=== PATIENT | female | born 1960 | race African-American/Black ===

== ENCOUNTER → 2017-07-17 | Outpatient (CLI) | payer OTHER | END | disposition home or self-care (01) | LOC: KCIC US 14:00 | DX: R10.2 Pelvic and perineal pain (principal); Z90.710 Acquired absence of both cervix and uterus | CPT/HCPCS: 76830; 76856 ==

== ENCOUNTER → 2017-08-25 | Outpatient (CLI) | payer OTHER | END | disposition home or self-care (01) | LOC: KCIC US 11:57 | DX: E04.2 Nontoxic multinodular goiter (principal) | CPT/HCPCS: 76536 ==

== ENCOUNTER 2018-05-27 10:17 | Emergency (ER) | payer OTHER ==
[~2018-05-27] VITALS: Ht 157.5 cm; Wt 83.0 kg
[2018-05-27 10:48] LABS: BASO % 1 % (0-3); EOS % 1 % (0-3); HEMATOCRIT 36.2 % (36.0-47.0); HEMOGLOBIN 11.9 g/dL (12.0-15.5); LYMPH # 1.3 x10^3/uL (1.0-4.8); LYMPH % 29 % (24-48); MEAN CORPUSCULAR HEMOGLOBIN 32 pg (25-35); MEAN CORPUSCULAR HGB CONC 33 g/dL (31-37); MEAN CORPUSCULAR VOLUME 97 fL (79-100); MONO # 0.3 x10^3/uL (0.0-1.1); MONO % 7 % (0-9); NEUT # 2.9 x10^3uL (1.8-7.7); NEUT % 62 % (31-73); PLATELET COUNT 128 x10^3/uL (140-400); RED BLOOD COUNT 3.75 x10^6/uL (3.50-5.40); RED CELL DISTRIBUTION WIDTH 14.5 % (11.5-14.5); WHITE BLOOD COUNT 4.7 x10^3/uL (4.0-11.0)
--- NOTE | 2018-05-27 10:56 | PHYS DOC ---
Past Medical History Past Medical History: Hypertension Adult General Chief Complaint Chief Complaint: CHEST PAIN HPI HPI Patient is a 57-year-old female who presents to the emergency department for evaluation. She has a history of untreated hypertension, recently established health insurance and went to see a nurse practitioner today for primary care. The patient was complaining of chest pain on and off for the past month, which has been waxing and waning. the chest pain is described as a sharp pain in the center of her chest without radiation, but she is also having right-sided "rib" pain, without any injury. She has not had any diaphoresis, definite pleuritic pain, nausea, vomiting. He does report some shortness of breath. She also reports some right lower abdominal discomfort for the past week and a half. She has not had any urinary symptoms. Her pain is not necessarily worsened by exertion. There are no alleviating or exacerbating factors to the patient's symptoms otherwise. Review of Systems Review of Systems Constitutional: Denies fever or chills [] Eyes: Denies change in visual acuity, redness, or eye pain [] HENT: Denies nasal congestion or sore throat [] Respiratory: Denies cough or pleuritic pain[] Cardiovascular: No additional information not addressed in HPI [] GI: Denies nausea, vomiting, bloody stools or diarrhea [] : Denies dysuria or hematuria [] Musculoskeletal: Denies back pain or joint pain [] Integument: Denies rash or skin lesions [] Neurologic: Denies headache, focal weakness or sensory changes [] Endocrine: Denies polyuria or polydipsia [] All other systems were reviewed and found to be within normal limits, except as documented in this note. Current Medications Current Medications Current Medications Medications (Trade) Dose Ordered Sig/El Start Time Stop Time Status Last Admin Dose Admin Aspirin (Children'S Aspirin) 324 mg 1X ONCE 05/27/18 10:45 05/27/18 10:58 DC 05/27/18 11:24 324 MG Info (CONTRAST GIVEN -- Rx MONITORING) 1 each PRN DAILY PRN 05/27/18 11:30 05/29/18 11:29 Iohexol (Omnipaque 350 Mg/ml) 100 ml 1X ONCE 05/27/18 11:30 05/27/18 11:31 DC 05/27/18 11:42 100 ML Allergies Allergies Allergies Coded Allergies Type Severity Reaction Last Updated Verified Sulfa (Sulfonamide Antibiotics) Allergy Intermediate 05/27/18 Yes codeine Allergy Intermediate 05/27/18 Yes Physical Exam Physical Exam PHYSICAL EXAM: CONSTITUTIONAL: Well developed, well nourished HEAD: normocephalic, atraumatic EENT: PERRL, EOMI. Conjunctivae normal color, sclerae non-icteric; moist mucous membranes. NECK: Supple, non-tender; no meningismus. LUNGS: Lungs CTA, breathing even and unlabored. Normal air movement. HEART: Regular rate and rhythm, no murmur CHEST: No deformity; there is tenderness to palpation of the anterior chest wall which reproduces the patient's chest pain. ABDOMEN: The abdomen is soft, there is focal RLQ TTP, without rebound or guarding, the remainder of the abdomen is soft and non-tender, normal bowel sounds are present, no masses or bruits. EXTREM: Normal ROM; no deformity, no calf tenderness. Normal pulses palpable in all extremities. There is no pedal edema. SKIN: No rash; no diaphoresis NEURO: Alert; normal speech and cognition; CN's grossly intact; strength grossly intact without focal deficit. BACK: No CVA TTP. Current Patient Data Vital Signs Vital Signs Date Time Temp Pulse Resp B/P (MAP) Pulse Ox O2 Delivery O2 Flow Rate FiO2 05/27/18 10:22 97.9 67 16 182/96 (124) 99 Room Air 97.9 Lab Values Laboratory Tests Test 05/27/18 10:38 05/27/18 12:03 White Blood Count 4.7 x10^3/uL (4.0-11.0) Red Blood Count 3.75 x10^6/uL (3.50-5.40) Hemoglobin 11.9 g/dL (12.0-15.5) L Hematocrit 36.2 % (36.0-47.0) Mean Corpuscular Volume 97 fL (79-100) Mean Corpuscular Hemoglobin 32 pg (25-35) Mean Corpuscular Hemoglobin Concent 33 g/dL (31-37) Red Cell Distribution Width 14.5 % (11.5-14.5) Platelet Count 128 x10^3/uL (140-400) L Neutrophils (%) (Auto) 62 % (31-73) Lymphocytes (%) (Auto) 29 % (24-48) Monocytes (%) (Auto) 7 % (0-9) Eosinophils (%) (Auto) 1 % (0-3) Basophils (%) (Auto) 1 % (0-3) Neutrophils # (Auto) 2.9 x10^3uL (1.8-7.7) Lymphocytes # (Auto) 1.3 x10^3/uL (1.0-4.8) Monocytes # (Auto) 0.3 x10^3/uL (0.0-1.1) Eosinophils # (Auto) 0.0 x10^3/uL (0.0-0.7) Basophils # (Auto) 0.0 x10^3/uL (0.0-0.2) D-Dimer ([place]) 1.28 ug/mlFEU (0.00-0.50) H Sodium Level 143 mmol/L (136-145) Potassium Level 3.9 mmol/L (3.5-5.1) Chloride Level 106 mmol/L (98-107) Carbon Dioxide Level 29 mmol/L (21-32) Anion Gap 8 (6-14) Blood Urea Nitrogen 10 mg/dL (7-20) Creatinine 0.7 mg/dL (0.6-1.0) Estimated GFR (Cockcroft-Gault) 104.7 BUN/Creatinine Ratio 14 (6-20) Glucose Level 86 mg/dL (70-99) Calcium Level 9.2 mg/dL (8.5-10.1) Magnesium Level 2.0 mg/dL (1.8-2.4) Total Bilirubin 0.8 mg/dL (0.2-1.0) Aspartate Amino Transferase (AST) 16 U/L (15-37) Alanine Aminotransferase (ALT) 13 U/L (14-59) L Alkaline Phosphatase 124 U/L (46-116) H Creatine Kinase 84 U/L (26-192) Creatine Kinase MB (Mass) < 0.5 ng/mL (0.0-3.6) Creatine Kinase MB Relative Index % (0-4) Troponin I Quantitative < 0.017 ng/mL (0.000-0.055) [id number]-Zzm-[id number]-Type Natriuretic Peptide 136 pg/mL (0-124) H Total Protein 7.8 g/dL (6.4-8.2) Albumin 3.4 g/dL (3.4-5.0) Albumin/Globulin Ratio 0.8 (1.0-1.7) L Lipase 302 U/L (73-393) Urine Collection Type Unknown Urine Color Yellow Urine Clarity Clear Urine pH 6.0 Urine Specific [place] >=1.030 Urine Protein Negative mg/dL (NEG-TRACE) Urine Glucose (UA) Negative mg/dL (NEG) Urine Ketones (Stick) Negative mg/dL (NEG) Urine Blood Negative (NEG) Urine Nitrite Negative (NEG) Urine Bilirubin Negative (NEG) Urine Urobilinogen Dipstick 0.2 mg/dL (0.2 mg/dL) Urine Leukocyte Esterase Negative (NEG) Urine RBC 0 /HPF (0-2) Urine WBC 0 /HPF (0-4) Urine Squamous Epithelial Cells Mod /LPF Urine Bacteria 0 /HPF (0-FEW) Urine Hyaline Casts Few /HPF Urine Mucus Marked /LPF Laboratory Tests 05/27/18 10:38 Laboratory Tests 05/27/18 10:38 EKG EKG [Normal sinus rhythm with a normal rate, normal axis, normal intervals, there are no acute ischemic ST/T changes.] Radiology/Procedures Radiology/Procedures PROCEDURE: PORTABLE CHEST 1V EXAM: Chest, single view. HISTORY: Pain COMPARISON: 05/08/2016. FINDINGS: A frontal view of the chest is obtained. There is no infiltrate, pleural effusion or pneumothorax. There is a prominent cardiac silhouette likely due to portable technique. IMPRESSION: No acute pulmonary finding. [PROCEDURE: CT ANGIOGRAPHY CHEST CTA of the chest with contrast, 05/27/2018: HISTORY: Chest pain, right lower quadrant abdominal pain Multidetector CT imaging was performed following an IV bolus injection of iodinated contrast material. Multiplanar reconstructions were produced including coronal and sagittal MIP images. No filling defects are seen in the central pulmonary arteries to suggest pulmonary emboli. The thoracic aorta is of normal caliber. There is a pulsation type artifact related to the ascending aorta. No mediastinal or hilar adenopathy is seen. There is minimal dependent atelectasis and/or scarring in the lower lobes. No significant pulmonary consolidation is seen. A tiny 3-4 mm nodule is noted in the left upper lobe on axial image #40 of series #3. There is no evidence of pleural fluid. IMPRESSION: 1. No CT evidence of central pulmonary emboli. 2. Tiny left upper lobe pulmonary nodule. ] PROCEDURE: CT ABD PELV W/ IV CONTRST ONLY CT of the abdomen and pelvis with contrast, 05/27/2018: HISTORY: Right lower quadrant abdominal pain Multidetector CT imaging was performed following an IV bolus injection of iodinated contrast material. No oral contrast material was administered for this exam. Comparison is made to a study from 02/01/2014. There is a 3 cm cyst in the lateral aspect of the right lobe of the liver. The gallbladder is surgically absent. Mild prominence of the central intrahepatic bile ducts is probably secondary to the postcholecystectomy state. No pancreatic abnormality is seen. The spleen is of normal size. No renal or adrenal abnormality is detected. The abdominal aorta is of normal caliber. No abdominal or pelvic adenopathy is seen. Numerous lower pelvic calcifications are compatible with phleboliths. The bowel loops are not dilated. A portion of the appendix is visualized and it is unremarkable. No free fluid or free air is evident in the abdomen or pelvis. There is moderate bilateral facet joint arthropathy at L4-5. IMPRESSION: No acute abdominal or pelvic abnormality is detected. Course & Med Decision Making Course & Med Decision Making Pertinent Labs and Imaging studies reviewed. (See chart for details) 12:35 PM: Patient's condition remained stable. Clinical suspicion for acute coronary syndrome is very low given the long duration of symptoms, reproducible nature of her pain, and HEART score is a 1. I discussed importance of close follow-up with her PCP and return precautions, discussed the use of heat and NSAIDs for likely musculoskeletal pain, and will initiate antihypertensive therapy. Dragon Disclaimer Dragon Disclaimer This electronic medical record was generated, in whole or in part, using a voice recognition dictation system. Departure Departure Impression: Primary Impression: Atypical chest pain Additional Impressions: Abdominal pain Hypertension Disposition: 01 HOME, SELF-CARE Condition: STABLE Referrals: SYLVIA COOPER [employer] [facility]ST (PCP) Patient Instructions: Abdominal Pain, Chest Pain (Nonspecific), Chest Wall Pain , Hypertension Additional Instructions: Ibuprofen 400-600 mg every 6 hours may help improve your symptoms. Applying a heating pad to the affected area may help improve your symptoms. Scripts Lisinopril/Hydrochlorothiazide (LISINOPRIL-HCTZ 10-12.5 MG TAB) 1 Each Tablet 1 TAB PO DAILY, #30 TAB 0 Refills Prov: KAYLI GOOD MD 05/27/18 Problem Qualifiers KAYLI GOOD MD May 27, 2018 10:56
[2018-05-27 10:58] LABS: CALCIUM 9.2 mg/dL (8.5-10.1); CREATININE 0.7 mg/dL (0.6-1.0); GFR 104.7; POTASSIUM 3.9 mmol/L (3.5-5.1)
[2018-05-27 11:05] LABS: ALBUMIN 3.4 g/dL (3.4-5.0); ALBUMIN/GLOBULIN RATIO 0.8 (1.0-1.7); TOTAL BILIRUBIN 0.8 mg/dL (0.2-1.0); TOTAL PROTEIN 7.8 g/dL (6.4-8.2)
[2018-05-27 11:12] LABS: CREATINE KINASE 84 U/L (26-192)
[2018-05-27] MEDS: ASPIRIN CHEWABLE 81 MG TABLET. PO ONE (11:24)
[2018-05-27] MEDS ORDERED: CONTRAST GIVEN. MC PRN (11:30)
--- NOTE | 2018-05-27 11:34 | RAD ---
EXAM: Chest, single view. HISTORY: Pain COMPARISON: 05/08/2016. FINDINGS: A frontal view of the chest is obtained. There is no infiltrate, pleural effusion or pneumothorax. There is a prominent cardiac silhouette likely due to portable technique. IMPRESSION: No acute pulmonary finding. Electronically signed by: Lupe Santos MD (05/27/2018 11:31 AM) [id number]
[2018-05-27] MEDS: IOHEXOL 350 MG/ML 100 ML VIAL. IV ONE (11:42)
[2018-05-27 12:11] LABS: BILIRUBIN,URINE NEGATIVE (NEG); CLARITY,URINE CLEAR; COLOR,URINE YELLOW; NITRITE,URINE NEGATIVE (NEG); PROTEIN,URINE NEGATIVE (NEG-TRACE); UROBILINOGEN,URINE 0.2 mg/dL (0.2 mg/dL)
--- NOTE | 2018-05-27 12:18 | RAD ---
CTA of the chest with contrast, 05/27/2018: HISTORY: Chest pain, right lower quadrant abdominal pain Multidetector CT imaging was performed following an IV bolus injection of iodinated contrast material. Multiplanar reconstructions were produced including coronal and sagittal MIP images. No filling defects are seen in the central pulmonary arteries to suggest pulmonary emboli. The thoracic aorta is of normal caliber. There is a pulsation type artifact related to the ascending aorta. No mediastinal or hilar adenopathy is seen. There is minimal dependent atelectasis and/or scarring in the lower lobes. No significant pulmonary consolidation is seen. A tiny 3-4 mm nodule is noted in the left upper lobe on axial image #40 of series #3. There is no evidence of pleural fluid. IMPRESSION: 1. No CT evidence of central pulmonary emboli. 2. Tiny left upper lobe pulmonary nodule. PQRS Compliance Statement: One or more of the following individualized dose reduction techniques were utilized for this examination: 1. Automated exposure control 2. Adjustment of the mA and/or kV according to patient size 3. Use of iterative reconstruction technique Electronically signed by: Marcos Phoenix MD (05/27/2018 12:15 PM) [facility]
[2018-05-27 12:19] LABS: BACTERIA,URINE 0 /HPF (0-FEW); HYALINE CASTS, URINE FEW /HPF; RBC,URINE 0 /HPF (0-2); SQUAMOUS EPITHELIAL CELL,UR MOD /LPF; WBC,URINE 0 /HPF (0-4)
--- NOTE | 2018-05-27 12:26 | RAD ---
CT of the abdomen and pelvis with contrast, 05/27/2018: HISTORY: Right lower quadrant abdominal pain Multidetector CT imaging was performed following an IV bolus injection of iodinated contrast material. No oral contrast material was administered for this exam. Comparison is made to a study from 02/01/2014. There is a 3 cm cyst in the lateral aspect of the right lobe of the liver. The gallbladder is surgically absent. Mild prominence of the central intrahepatic bile ducts is probably secondary to the postcholecystectomy state. No pancreatic abnormality is seen. The spleen is of normal size. No renal or adrenal abnormality is detected. The abdominal aorta is of normal caliber. No abdominal or pelvic adenopathy is seen. Numerous lower pelvic calcifications are compatible with phleboliths. The bowel loops are not dilated. A portion of the appendix is visualized and it is unremarkable. No free fluid or free air is evident in the abdomen or pelvis. There is moderate bilateral facet joint arthropathy at L4-5. IMPRESSION: No acute abdominal or pelvic abnormality is detected. PQRS Compliance Statement: One or more of the following individualized dose reduction techniques were utilized for this examination: 1. Automated exposure control 2. Adjustment of the mA and/or kV according to patient size 3. Use of iterative reconstruction technique Electronically signed by: Marcos Phoenix MD (05/27/2018 12:23 PM) [facility]
[2018-05-27] MEDS ORDERED: LISI1TAB3 PO (12:38)
--- NOTE | 2018-05-27 12:49 | EKG ---
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
[2018-05-27 12:52] VITALS: BP 162/80
[2018-05-27 13:42] LABS: PLT ESTIMATE DECREASED (ADEQUATE)
== END 2018-05-27 13:20 | disposition home or self-care (01) ==
LOC: ER 10:17
DX: R07.89 Other chest pain (principal); R10.31 Right lower quadrant pain; R06.02 Shortness of breath; I10 Essential (primary) hypertension; K76.89 Other specified diseases of liver; Z79.82 Long term (current) use of aspirin; Z88.5 Allergy status to narcotic agent; Z88.2 Allergy status to sulfonamides
CPT/HCPCS: 36415; 71045; 71275; 74177; 80053; 81001; 82553; 83690; 83735; 83880; 84484; 85025; 85379; 93005; 99284; Q9967